=== PATIENT | male | born 1930 | race Caucasian/White ===

== ENCOUNTER → 2016-05-09 | Outpatient (CLI) | payer OTHER | LOC: FCPNEURO 20:00 | PROVIDERS: ATTEND Student in an Organized Health Care Education/Training Program | DX: G47.33 Obstructive sleep apnea (adult) (pediatric) (principal); G47.31 Primary central sleep apnea ==

== ENCOUNTER → 2016-06-13 | Outpatient (CLI) | payer OTHER | LOC: BMCIMAGING 10:55 | PROVIDERS: ATTEND Internal Medicine Rheumatology | DX: M12.9 Arthropathy, unspecified (principal) ==

== ENCOUNTER → 2018-07-24 | Outpatient (CLI) | payer OTHER | LOC: BMCIMAGING 09:48 | PROVIDERS: ATTEND Internal Medicine | DX: J98.4 Other disorders of lung (principal); I51.7 Cardiomegaly ==